=== PATIENT | female | born 1970 | race Caucasian/White ===

== ENCOUNTER 2017-08-09 18:52 | Day surgery (SDC) | payer OTHER ==
[~2017-08-09] VITALS: Ht 157.5 cm; Wt 92.1 kg
[2017-08-09] MEDS ORDERED: SYNTHROID75 MCG (19:19)
[2017-08-09] MEDS ORDERED: SYNTHROID200 MCG (19:19)
[2017-08-10] MEDS ORDERED: ULTRACET PO (11:46)
[2017-08-10] MEDS ORDERED: METOCLOPRAMIDE10 MG PO (11:46)
== END 2017-08-10 14:28 | disposition home or self-care (01) ==
LOC: ER 18:52 → CIR.AMB 08-10 06:00 → O/R 08-10 07:17 → SEC-K 08-10 07:17 → ER 08-10 07:17 → CIR.AMB 08-10 07:17 → EDSTATUS 08-10 09:00 → SEC-K 08-10 09:11 → O/R 08-10 09:11 → CIR.AMB 08-10 10:20 → O/R 08-10 15:55
DX: K80.10 Calculus of gallbladder with chronic cholecystitis without obstruction (principal)

== ENCOUNTER 2022-06-16 06:00 | Day surgery (SDC) | payer OTHER ==
[~2022-06-16 06:00] MED LIST: METOCLOPRAMIDE10 MG PO; SYNTHROID200 MCG; SYNTHROID75 MCG; ULTRACET PO
== END 2022-06-16 11:50 | disposition home or self-care (01) ==
LOC: CIR.AMB 06:00
PROVIDERS: ATTEND Urology
DX: N39.3 Stress incontinence (female) (male) (principal); Z88.0 Allergy status to penicillin
CPT/HCPCS: 57288; C1771

== ENCOUNTER 2024-11-28 19:53 | Emergency (ER) | payer OTHER ==
[~2024-11-28] VITALS: Ht 157.5 cm; Wt 86.2 kg
[2024-11-28 20:08] VITALS: BP 150/90; O2SAT 96
[2024-11-28] MEDS ORDERED: ONDANSETRON HCL 2 MG/ML VIAL IV STA (20:20)
[2024-11-28] MEDS ORDERED: 0.9 % SODIUM CHLORIDE 1,000 ML IV STA (20:20)
[2024-11-28] MEDS ORDERED: FAMOTIDINE/PF 20 MG/2 ML VIAL IV STA (20:20)
[2024-11-28] MEDS ORDERED: KETOROLAC TROMETHAMINE 30 MG VIAL IV STA (20:21)
[2024-11-28] MEDS ORDERED: ONDANSETRON HCL 2 MG/ML VIAL ONE (20:53)
[2024-11-28] MEDS ORDERED: KETOROLAC TROMETHAMINE 30 MG VIAL ONE (20:53)
[2024-11-28] MEDS ORDERED: FAMOTIDINE/PF 20 MG/2 ML VIAL ONE (20:53)
[2024-11-28 21:19] LABS: BASO % 0.2 % (0.1-1.2); EOS # 0.25 (0.04-0.54); EOS % 2.8 % (0.7-7.0); LYMPH # 2.11 (1.18-3.74); LYMPH % 23.4 % (19.3-53.1); MEAN PLATELET VOLUME 9.30 fl (9.4-12.4); MONO # 0.86 (0.24-0.82); MONO % 9.6 % (4.7-12.5); NEUT # 5.74 (1.56-6.13); NEUT % 63.8 % (34.0-71.1); RED CELL DISTRIBUTION WIDTH 13.6 % (11.6-14.4)
[2024-11-28 21:49] LABS: BUN CREA RATIO 13.0 (7.0-25.0); CREATININE SERUM 0.69 mg/dL (0.55-1.02); GFR 88.33; GLUCOSE FASTING 101.0 mg/dL (65-100); OSMOLALITY SERUM 280.0 MOSM/KG (275-295)
[2024-11-28 23:15] LABS: URINE APPEARANCE Clear; URINE BILIRRUBIN Negative (NEGATIVE); URINE BLOOD Negative; URINE COLOR Yellow; URINE GLUCOSE Negative (NEGATIVE); URINE KETONE Trace (NEGATIVE); URINE LEUKOCYTE Negative; URINE NITRATE Negative; URINE PROTEIN Negative (NEGATIVE); URINE UROBILINOGEN 0.2 E.U./dl
[2024-11-28 23:19] LABS: URINE BACTERIA 507.5 uL (0.0-1933); URINE EPITHELIAL CELLS 11.3 uL (0.0-38.8); URINE RBC 23.1 uL (0.0-20.8); URINE WBC 6.4 uL (0.0-23.2)
[2024-11-28 23:20] LABS: URINE CAST 0.29 uL (0.0-1.40)
== END 2024-11-28 23:26 | disposition home or self-care (01) ==
LOC: ER 19:53
PROVIDERS: General Practice
DX: R10.9 Unspecified abdominal pain (principal); Z88.0 Allergy status to penicillin; I10 Essential (primary) hypertension